=== PATIENT | female | born 1965 | race Hispanic/Latino ===

== ENCOUNTER → 2021-08-17 | Day surgery (SDC) | payer BC ==
[~2021-08-17] MED LIST: ACETAMINOPHEN-1 EAC4 PO; BUPIVACAINE HCL 0.5% INJ 30 ML VIAL INJ ONE; DEXAMETHASONE SOD PHOS INJ 4 MG/ML SDV ONE; EPHEDRINE SULFATE INJ 50 MG/ML VIAL ONE; FENTANYL CITRATE/PF 100MCG/2 ML INJ ONE; KETOROLAC TROMETHAMINE 30 MG/ML VIAL ONE; LIDOCAINE HCL 2% LOCAL INJ 5 ML SDV VIAL INJ ONE; METOCLOPRAMIDE HCL 10 MG/2ML VIAL ONE; MIDAZOLAM HCL 2 MG/2 ML VIAL ONE; MUPIROCIN 2% OINT 22 GM TUBE ONE; ONDANSETRON HCL INJ 2MG/ML 2ML 2 MG/ML VIAL ONE; POVIDONE IODINE 0.05% 0.05 % ML PO ONE; PROPOFOL IV EMULSION 10 MG/ML 20 ML VIAL ONE; SEVOFLURANE INHAL SOLN 250 ML PEN BTL ONE; SODIUM CHLORIDE 0.9% 50ML 50 ML ONE
[2021-08-17 08:30] VITALS: BP 110/67
== END | disposition home or self-care (01) ==
LOC: OR 05:19
PROVIDERS: ATTEND Plastic Surgery
DX: M67.431 Ganglion, right wrist (principal); K21.9 Gastro-esophageal reflux disease without esophagitis; A04.8 Other specified bacterial intestinal infections; Z01.810 Encounter for preprocedural cardiovascular examination; Z01.812 Encounter for preprocedural laboratory examination; Z20.822 Contact with and (suspected) exposure to COVID-19
CPT/HCPCS: 25111; 88304; 93005; J0690; J1100; J1885; J2001; J2405; J2704; J2765; U0002; J2250; J3010

== ENCOUNTER → 2023-01-11 | Day surgery (SDC) | payer BC ==
[~2023-01-11] MED LIST changes: -BUPIVACAINE HCL 0.5% INJ 30 ML VIAL INJ ONE; +CALCIUM; -DEXAMETHASONE SOD PHOS INJ 4 MG/ML SDV ONE; -EPHEDRINE SULFATE INJ 50 MG/ML VIAL ONE; +FAMOTIDINE20 MG PO; -FENTANYL CITRATE/PF 100MCG/2 ML INJ ONE; +GLYCOPYRROLATE INJ 0.2 MG/ML VIAL ONE; -KETOROLAC TROMETHAMINE 30 MG/ML VIAL ONE; +LACTATED RINGER'S 1,000 ML ONE; +LOVASTATIN40 MG PO; -METOCLOPRAMIDE HCL 10 MG/2ML VIAL ONE; -MUPIROCIN 2% OINT 22 GM TUBE ONE; -ONDANSETRON HCL INJ 2MG/ML 2ML 2 MG/ML VIAL ONE; -SEVOFLURANE INHAL SOLN 250 ML PEN BTL ONE; -SODIUM CHLORIDE 0.9% 50ML 50 ML ONE; +VITAMIN C500 MG PO; +VITAMIN D31 GM
[2023-01-11 14:57] VITALS: TEMP 97.7
[2023-01-11 15:21] VITALS: BP 105/63; PULSE 63; RESP 18; O2SAT 98
== END | disposition home or self-care (01) ==
LOC: OR 10:54
PROVIDERS: ATTEND Internal Medicine Gastroenterology
DX: K29.50 Unspecified chronic gastritis without bleeding (principal); R13.10 Dysphagia, unspecified; K31.A0 Gastric intestinal metaplasia, unspecified; K64.4 Residual hemorrhoidal skin tags; D64.9 Anemia, unspecified; E78.5 Hyperlipidemia, unspecified; M06.9 Rheumatoid arthritis, unspecified; R00.1 Bradycardia, unspecified; M81.0 Age-related osteoporosis without current pathological fracture; R07.9 Chest pain, unspecified; R03.0 Elevated blood-pressure reading, without diagnosis of hypertension; Z01.810 Encounter for preprocedural cardiovascular examination; Z79.899 Other long term (current) drug therapy
CPT/HCPCS: 43239; 93005; J2001; J2250; J2704; J7121